=== PATIENT | female | born 1980 | race African-American/Black ===

== ENCOUNTER 2023-06-09 18:08 | Emergency (ER) | payer BC, OTHER ==
[2023-06-09 18:21] VITALS: BMI 40.4
[2023-06-09 19:41] LABS: HCG,QUALITATIVE URINE Positive
[2023-06-09 19:42] LABS: PH,URINE 5.5 (5.0-8.0); URINE APPEARANCE CLEAR; URINE BILIRUBIN NEGATIVE (NEGATIVE); URINE COLOR YELLOW; URINE GLUCOSE (UA) NEGATIVE (NEGATIVE); URINE KETONE NEGATIVE (NEGATIVE); URINE LEUK ESTERASE NEGATIVE (NEGATIVE); URINE NITRITE NEGATIVE (NEGATIVE); URINE PROTEIN NEGATIVE (NEGATIVE); URINE UROBILINOGEN 0.2 mg/dL (0.2-1.0)
[2023-06-09 20:31] LABS: BASO % 0.8 % (0-2.0); EOS % 2.4 % (0-4.5); HEMATOCRIT 39.1 % (32.4-45.2); HEMOGLOBIN 13.2 GM/dL (10.7-15.3); LYMPH % 38.5 % (8-40); MCHC 33.7 g/dl (32.0-36.0); MEAN CELL VOLUME 92.1 fl (80-96); MEAN PLT VOLUME 8.6 fl (7.5-11.1); MONO % 5.7 % (3.8-10.2); NEUT % 52.6 % (42.8-82.8); PLATELET COUNT 321 10^3/uL (134-434); RBC 4.24 M/mm3 (3.60-5.2); RDW 15.1 % (11.6-15.6); WHITE BLOOD COUNT 9.7 K/mm3 (4.0-10.0)
[2023-06-09 20:42] LABS: INR 1.03 (0.83-1.09); PROTHROMBIN TIME (PATIENT) 11.9 SEC (9.7-13.0)
[2023-06-09 20:44] LABS: ACTIVATED PTT 34.1 SECONDS (25.2-36.5)
[2023-06-09 20:49] LABS: CHLORIDE 105 mmol/L (98-107); SODIUM 133 mmol/L (136-145)
[2023-06-09 20:52] LABS: BLOOD UREA NITROGEN 8.2 mg/dL (7-18); CO2 25 mmol/L (21-32); GLUCOSE,RANDOM 87 mg/dL (74-106)
[2023-06-09 20:53] LABS: ALBUMIN 3.7 g/dl (3.4-5.0)
[2023-06-09 20:55] LABS: SGOT/AST 44 U/L (15-37)
[2023-06-09 20:56] LABS: SGPT/ALT 20 U/L (13-61)
[2023-06-09 20:57] LABS: BILIRUBIN,TOTAL 0.3 mg/dL (0.2-1); TOT PROT 8.2 g/dl (6.4-8.2)
[2023-06-09 20:58] LABS: ALK PHOS 91 U/L (45-117)
[2023-06-09 21:01] LABS: ANION GAP 3 mmol/L (4-13); POTASSIUM 6.3 mmol/L (3.5-5.1)
[2023-06-10] MEDS: METHOTREXATE SODIUM/PF 25 MG/ML VIAL IM ONE (00:25)
[2023-06-10 00:29] VITALS: BP 104/69; PULSE 79; RESP 18; TEMP 98.3
== END 2023-06-10 00:40 | disposition home or self-care (01) ==
LOC: JER 18:08
PROC: 3E023GC Introduction of Other Therapeutic Substance into Muscle, Percutaneous Approach (ICD-10-PCS; principal; 2023-06-10)
DX: O00.90 Unspecified ectopic pregnancy without intrauterine pregnancy (principal)
CPT/HCPCS: 36415; 76817-TC; 80053; 81003; 84132; 84702; 84703; 85025; 85610; 85730; 86850; 86900; 86901; 87086; 99284-25; J9260